=== PATIENT | male | born 1955 | race Caucasian/White ===

== ENCOUNTER 2022-08-30 01:02 | Inpatient (IN) | payer OTHER ==
[2022-08-30] VITALS (23 sets, daily range): BP systolic 81–105
[~2022-08-30] VITALS: Ht 172.7 cm; Wt 81.2 kg
--- NOTE | 2022-08-30 01:02 | NUR ---
PT BROUGHT IN BY [facility] [address] [facility], PLACED IN BED #1 AND TRIAGED. REPORT GIVEN TO TAVO
--- NOTE | 2022-08-30 01:05 | NUR ---
YAMILET Segura at bedside examining patient.
[2022-08-30] MEDS ORDERED: NOREPINEPHRINE 4 MG/4 ML VIAL IV ONE ×3 (01:14→09:05)
[2022-08-30] MEDS ORDERED: VANCOMYCIN HCL 1,000 MG in D5W 250 ML IV ONE (01:15)
[2022-08-30] MEDS ORDERED: NS 1000 ML IV.SOLN IV ONE (01:15)
[2022-08-30] MEDS ORDERED: NOREPINEPHRINE BITARTRATE 4 MG in NS 246 ML IV ONE (01:15)
[2022-08-30] MEDS ORDERED: PIPERACILLIN/TAZO 3.375 GM in D5W 50 ML IV ONE (01:15)
[2022-08-30 01:27] LABS: BASOPHILS % (AUTO) 0.2 % (0.0-2.0); EOSINOPHILS % (AUTO) 0.1 % (0.0-4.0); HEMATOCRIT 30.5 % (36-54); LYMPHOCYTES # (AUTO) 0.4 K/uL (1.0-5.5); LYMPHOCYTES % (AUTO) 2.9 % (20.5-51.5); MEAN CORPUSCULAR HEMOGLOBIN 29 pg (27-31); MEAN CORPUSCULAR HGB CONC 33 % (32-36); MEAN CORPUSCULAR VOLUME 90 fL (79.0-98.0); MONOCYTES # (AUTO) 0.4 K/uL (0.0-1.0); MONOCYTES % (AUTO) 2.9 % (1.7-9.3); NEUTROPHILS # (AUTO) 11.8 K/uL (1.8-7.7); NEUTROPHILS % (AUTO) 93.9 % (40.0-70.0); PLATELET COUNT (AUTO) 161 K/uL (130-430); RED BLOOD CELL COUNT(AUTO) 3.41 MIL/uL (4.2-6.2); RED CELL DISTRIBUTION WIDTH 17.4 % (9.0-15.0); WHITE BLOOD COUNT (AUTO) 12.6 K/uL (4.8-10.8)
--- NOTE | 2022-08-30 01:30 | NUR ---
PT IN RESPIRATORY DISTRESS, PER DR HERNANDEZ PT NEEDS TO BE INTUBATED. RT PRIMARY NURSE AND MD AT BEDSIDE.
--- NOTE | 2022-08-30 01:32 | NUR ---
# 16 FR Padilla catheter with use of sterile technique. Immediate return of 150 cc STRAW urine noted. Bedside drainage bag placed below level of bladder. Urine sample collected and sent to lab. Pt tolerated procedure WELL Patient unable to toilet self.
[2022-08-30] MEDS ORDERED: INSU100V42 (01:35)
[2022-08-30] MEDS ORDERED: BIKTARVY PO (01:35)
[2022-08-30] MEDS ORDERED: CLOP75TA32 PO (01:35)
[2022-08-30] MEDS ORDERED: MIDO5TAB4 PO (01:35)
[2022-08-30] MEDS ORDERED: RIVA1.5C30 PO (01:35)
[2022-08-30] MEDS ORDERED: PRO40 PO (01:35)
[2022-08-30] MEDS ORDERED: INSU100V53 SUBCUT (01:35)
[2022-08-30] MEDS ORDERED: SERT25TA PO (01:35)
[2022-08-30] MEDS ORDERED: BUDE6HFA INH (01:35)
[2022-08-30] MEDS ORDERED: MULT-591 PO (01:35)
[2022-08-30] MEDS ORDERED: DOCU-144 PO (01:35)
[2022-08-30] MEDS ORDERED: EMPA10TA PO (01:35)
[2022-08-30] MEDS ORDERED: ROSU40TA PO (01:35)
[2022-08-30] MEDS ORDERED: MONT-40 PO (01:35)
[2022-08-30] MEDS ORDERED: TAMS0.4C96 PO (01:35)
[2022-08-30] MEDS ORDERED: METF-518 PO (01:35)
[2022-08-30] MEDS ORDERED: RISP1TAB7 PO (01:35)
--- NOTE | 2022-08-30 01:40 | NUR ---
Medication reconciliation completed with information provided by [facility] . Any prior medication reconciliation on file was reviewed and corrected.
[2022-08-30 01:44] LABS: ANION GAP 19 (5-15); CALCIUM 9.3 mg/dL (8.4-11.0); CHLORIDE 101 mmol/L (98-107); CREATININE 3.29 mg/dL (0.55-1.30); GFR AFRICAN AMERICAN 24 mL/min (>90); GLUCOSE 183 mg/dL (70-99); UREA NITROGEN, BLOOD 60 mg/dL (8-21)
[2022-08-30] MEDS ORDERED: ROCURONIUM BROMIDE 10 MG/ML (ZEMURON) ONE (01:44)
[2022-08-30] MEDS ORDERED: ETOMIDATE 20 MG/ 10 ML VIAL (AMIDATE) ONE (01:44)
[2022-08-30] MEDS ORDERED: MIDAZOLAM IN NACL,ISO-OSMOT/PF 100 ML IV PRN ×2 (01:45→13:15)
[2022-08-30] MEDS ORDERED: MIDAZOLAM IN NACL,ISO-OSMOT/PF 100 ML IV ONE (01:51)
[2022-08-30 01:52] LABS: ALANINE AMINOTRANSFERASE 46 U/L (12-78); ALBUMIN 2.5 g/dL (3.4-4.8); ASPARTATE AMINOTRANSFERASE 67 U/L (10-37); TOTAL BILIRUBIN 0.7 mg/dL (0.0-1.0)
--- NOTE | 2022-08-30 01:59 | NUR ---
LE:0134 ETOMIDATE 20MG GIVEN 0135 ROCURONIUM 50 MG GIVEN 0136 PT WAS INTUBATED SUCCESFULLY 24 AT THE LIP/7.5 TUBE. 0139 NG TUBE WAS INSERTED TO RIGHT NARE, NO TRAUMA OR BLEEDING NOTED.
--- NOTE | 2022-08-30 02:01 | NUR ---
COVID AND MRSA SWABBED AND SENT TO LAB LABELED
[2022-08-30 02:03] LABS: BILIRUBIN,URINE NEGATIVE (NEGATIVE); BLOOD, URINE 2+ (NEGATIVE); CLARITY/URINE SL CLOUDY (CLEAR); COLOR,URINE YELLOW (YELLOW); GLUCOSE,URINE 3+ (NEGATIVE); KETONES,URINE NEGATIVE (NEGATIVE); LEUKOCYTE ESTERASE ,URINE NEGATIVE (NEGATIVE); NITRITE, URINE NEGATIVE (NEGATIVE); PROTEIN URINE 2+ (NEGATIVE); UROBILINOGEN,URINE 0.2 (0.2-1.0)
[2022-08-30] MEDS ORDERED: PIPERACILLIN/TAZOBACTAM 3.375 GM/VIAL (ZOSYN) IV ONE (02:03)
[2022-08-30] MEDS ORDERED: VANCOMYCIN HCL 1000 MG/VIAL IV ONE (02:03)
[2022-08-30 02:05] LABS: INR 0.9 (0.80-1.20); PROTHROMBIN TIME 9.8 SECS (9.5-12.5)
[2022-08-30] MEDS ORDERED: ASPIRIN 300 MG/SUPP.RECT SUPP RC ONE ×2 (02:30→04:55)
[2022-08-30] MEDS ORDERED: *LOVENOX 1MG/KG Q24H/PHARMACY XX ONE (02:30)
[2022-08-30 02:34] LABS: BACTERIA,URINE RARE /HPF (None Seen); WBC,URINE 0-3 /HPF (0-3)
--- NOTE | 2022-08-30 02:35 | NUR ---
MD JOHNSON PAGEJennifer FOR ADMISSION CALL WAS TRANSFERED TO MD HERNANDEZ
[2022-08-30] MEDS: D5NS 1,000 ML IV SCH ×3 (02:45→22:15)
--- NOTE | 2022-08-30 03:13 | NUR ---
LOVENOX WAS GIVEN PER DRS ORDERS. 1MG/KG=80 MG
[2022-08-30] MEDS ORDERED: ENOXAPARIN SODIUM 100 MG/ML SYRINGE ONE (03:14)
--- NOTE | 2022-08-30 03:36 | NUR ---
PT SWAB FOR INFLUENZA A&B, SWAB GIVEN TO [place].
--- NOTE | 2022-08-30 04:22 | NUR ---
Jn blanco in ED - 08/30/22 at 0424 by ANGIE MD ELIZABETH GOLDSTEIN FOR ADMITTING AND PATCHED TO MD HERNANDEZ
[2022-08-30] MEDS ORDERED: HYDROCORTISONE SOD SUCC 100 MG/2 ML VIAL IVP ONE (05:00)
[2022-08-30] MEDS ORDERED: HYDROCORTISONE SOD SUCC 100 MG/2 ML VIAL ONE (05:14)
[2022-08-30] MEDS: NOREPINEPHRINE BITARTRATE 4 MG in D5W 246 ML IV PRN ×2 (05:36→09:12)
[2022-08-30] MEDS ORDERED: METF-381 PO (06:26)
--- NOTE | 2022-08-30 07:21 | NUR ---
ASSUMED PATIENT CARE VENTED, ON CARDIAC MNONITOR, SEDATED WITH VERSED DRIP, ON LEVOPHEDE, NO ACUTE DISTRESS NOTED, WILL CONTINUE TO MONITOR.
--- NOTE | 2022-08-30 07:45 | NUR ---
ADMITTING PHYSICIAN DR JOHNSON AT BEDSIDE.
[2022-08-30] MEDS ORDERED: ONDANSETRON HCL 4 MG/2 ML VIAL IVP PRN (08:00)
[2022-08-30] MEDS ORDERED: NALOXONE HCL 0.4 MG/ML AMP (NARCAN) IVP PRN ×2 (08:00)
[2022-08-30] MEDS ORDERED: POTASSIUM CHLORIDE 20 MEQ TAB.PRT.SR PO PRN (08:00)
[2022-08-30] MEDS ORDERED: ACETAMINOPHEN 325 MG TABLET PO PRN ×2 (08:00→08:15)
[2022-08-30] MEDS ORDERED: MUPIROCIN 2% TOPICAL OINTMENT 22 GM NS PRN (08:00)
[2022-08-30] MEDS ORDERED: MAGNESIUM SULFATE 50 ML IV PRN (08:00)
[2022-08-30] MEDS ORDERED: LORazepam 2 MG/ML VIAL IVP PRN (08:00)
[2022-08-30] MEDS ORDERED: DEXTROSE 50% JECT 50 ML DISP.SYRIN IVP PRN (08:00)
[2022-08-30] MEDS ORDERED: MORPHINE 2 MG/ML INJ. SYRINGE IVP PRN ×2 (08:00)
[2022-08-30] MEDS ORDERED: ZOLPIDEM TARTRATE 5 MG TABLET PO PRN (08:00)
[2022-08-30] MEDS ORDERED: DOCUSATE SODIUM 100 MG CAPSULE PO PRN (08:00)
[2022-08-30] MEDS ORDERED: *HEPARIN PER PHARMACY XX ONE (08:00)
--- NOTE | 2022-08-30 08:21 | NUR ---
Admit bed requested Patient will be admitted to care of . Admitted to ICU unit. Diagnosis ACUTE RESPIRATORY FAILURE Inpatient (Yes or No) Y Observation (Yes or No) N Orientation concerns or request close to nursing station (Yes or No)Y Covid Status N On vent or bipap Y Isolation requirements N Needs a sitter N From Home (Yes or if No enter name of facility) N Requires Dialysis (Yes or No) N Med Rec Completed (Yes of No)Y
[2022-08-30] MEDS ORDERED: INSULIN Lispro 100 UNITS/ML, 3 ML VIAL (humaLOG) ONE ×2 (08:49→09:01)
[2022-08-30] MEDS: HEPARIN SODIUM,PORCINE 5,000 UNITS/ML VIAL SUBCUT SCH ×2 (08:52→21:12)
[2022-08-30] MEDS: SERTRALINE HCL 50 MG TABLET PO SCH (09:00)
[2022-08-30] MEDS ORDERED: HEPARIN SODIUM,PORCINE 5,000 UNITS/ML VIAL SUBCUT SCH (09:00)
[2022-08-30] MEDS ORDERED: RIVASTIGMINE TARTRATE 1.5 MG CAPSULE (EXELON) PO SCH (09:00)
[2022-08-30] MEDS ORDERED: BIKTARVY PO SCH (09:00)
--- NOTE | 2022-08-30 09:00 | NUR ---
DR HOU CARDIOLOGY CONSULT AT BEDSIDE.
--- NOTE | 2022-08-30 10:15 | NUR ---
ECHO AT BEDSIDE IN PROGRESS.
--- NOTE | 2022-08-30 12:13 | NUR ---
REPORT GIVEN TO BECKI BELLO
--- NOTE | 2022-08-30 12:25 | NUR ---
TRANSFERRED PATIENT TO 126 B FROM ER 1 VIA VENT. NO RESPIRATORY DISTRESS NOTED.
--- NOTE | 2022-08-30 12:31 | NUR ---
Patient will be admitted to care of [facility]. Admitted to ICU unit. Will go to room 126 B. Belongings list completed. Complete and up to date summary report printed. SBAR report to be given at bedside with opportunity for questions.
--- NOTE | 2022-08-30 12:40 | NUR ---
CONFIRMED PATIENT VISIBLE ON TELEMONITOR ON TELE FLOOR
[2022-08-30] MEDS ORDERED: NOREPINEPHRINE BITARTRATE 8 MG in NS 242 ML IV PRN ×2 (13:00→13:15)
[2022-08-30] MEDS ORDERED: MONTELUKAST 10 MG TABLET PO SCH (18:00)
[2022-08-30] MEDS ORDERED: ROSUVASTATIN CALCIUM 5 MG/TAB (CRESTOR) PO SCH (21:00)
[2022-08-30] MEDS ORDERED: ATORVASTATIN 20 MG TABLET PO SCH (21:00)
[2022-08-30] MEDS: risperiDONE 1 MG TABLET (RisperDAL) PO SCH (21:10)
[2022-08-30] MEDS: TAMSULOSIN HCL 0.4 MG CAP PO SCH (21:10)
[2022-08-30] MEDS: INSULIN LISPRO SLIDING SCALE 100 UNITS/ML, 3 ML VIAL (humaLOG) SUBCUT PRN (21:26)
[2022-08-30] MEDS: PIPERACILLIN/TAZO 2.25G/DEX-IS 50 ML IV SCH (23:56)
[2022-08-31] VITALS (28 sets, daily range): BP systolic 82–129
[2022-08-31] MEDS ORDERED: PIPERACILLIN/TAZOBACTAM 2.25 GM VIAL IV ONE (00:12)
[2022-08-31] MEDS: NOREPINEPHRINE BITARTRATE 8 MG in NS 242 ML IV PRN ×3 (01:31→20:27)
[2022-08-31] MEDS: MIDAZOLAM IN NACL,ISO-OSMOT/PF 100 ML IV PRN (05:02)
[2022-08-31] MEDS: PIPERACILLIN/TAZO 2.25G/DEX-IS 50 ML IV SCH ×3 (05:17→19:09)
[2022-08-31] MEDS: INSULIN LISPRO SLIDING SCALE 100 UNITS/ML, 3 ML VIAL (humaLOG) SUBCUT PRN ×3 (06:16→19:20)
[2022-08-31 06:47] LABS: EOSINOPHILS % (AUTO) 0.1 % (0.0-4.0); HEMATOCRIT 27.6 % (36-54); HEMOGLOBIN 9.4 g/dL (14.0-18.0); LYMPHOCYTES # (AUTO) 0.3 K/uL (1.0-5.5); LYMPHOCYTES % (AUTO) 2.8 % (20.5-51.5); MEAN CORPUSCULAR HEMOGLOBIN 30 pg (27-31); MEAN CORPUSCULAR HGB CONC 34 % (32-36); MEAN CORPUSCULAR VOLUME 88 fL (79.0-98.0); MONOCYTES # (AUTO) 0.4 K/uL (0.0-1.0); MONOCYTES % (AUTO) 3.5 % (1.7-9.3); NEUTROPHILS # (AUTO) 11.1 K/uL (1.8-7.7); NEUTROPHILS % (AUTO) 93.6 % (40.0-70.0); PLATELET COUNT (AUTO) 141 K/uL (130-430); RED BLOOD CELL COUNT(AUTO) 3.13 MIL/uL (4.2-6.2); WHITE BLOOD COUNT (AUTO) 11.8 K/uL (4.8-10.8)
[2022-08-31 07:01] LABS: CREATININE 4.37 mg/dL (0.55-1.30)
--- NOTE | 2022-08-31 08:25 | NUR ---
RT NOTES Assisted in transporting pt from 127B to ICU 5, pt was bagged with 100% O2 via BVM device to ETT, back on the vent once in the room. A/w remains secure/patent. Vent to red outlet, alarms remains set and audible at nurse's station. BVM device at bedside.
--- NOTE | 2022-08-31 08:38 | NUR ---
Reported to Dr. Mcfarland HR: 115-130 bpm.
--- NOTE | 2022-08-31 08:40 | NUR ---
Patient transferred to ICU 5 from [facility]. RT at bedside for assistance.
[2022-08-31] MEDS: SERTRALINE HCL 50 MG TABLET PO SCH (09:00)
[2022-08-31] MEDS: risperiDONE 1 MG TABLET (RisperDAL) PO SCH (09:00)
[2022-08-31] MEDS: PATIENT'S OWN TABLET PO SCH (09:00)
[2022-08-31] MEDS: D5NS 1,000 ML IV SCH ×2 (10:56→19:12)
[2022-08-31] MEDS: TAMSULOSIN HCL 0.4 MG CAP PO SCH ×2 (11:09→19:38)
[2022-08-31] MEDS ORDERED: ALBUMIN HUMAN 25% 200 ML IV ONE (11:15)
[2022-08-31] MEDS ORDERED: ALBUMIN HUMAN 25% 50 ML IV ONE (11:17)
[2022-08-31] MEDS ORDERED: NOREPINEPHRINE 4 MG/4 ML VIAL IV ONE ×2 (11:37→14:04)
[2022-08-31] MEDS: SODIUM BICARBONATE 8.4% JECT 100 MEQ in D5W 1,000 ML IVP SCH (12:14)
[2022-08-31] MEDS: HYDROCORTISONE 10 MG TABLET (CORTEF) PO SCH ×2 (12:15→21:03)
[2022-08-31] MEDS: HEPARIN SODIUM,PORCINE 5,000 UNITS/ML VIAL SUBCUT SCH ×2 (12:38→20:26)
--- NOTE | 2022-08-31 12:57 | NUR ---
Patient's family's contacts: Toma Waggoner (older sister) and Caro
--- NOTE | 2022-08-31 14:00 | NUR ---
Family arrived to room and had multiple questions regarding patient. Patient's sister and niece asked very specific questions regarding patient kidney function and if he had pressure sore. Explained that Dr. Blancas notified regarding family's questions and concerns. Patient's family appeared to grow increasingly frustrated. Patient's niece said, "I work for [employer] for 14 years and I have never experienced this lack of customer service at a hospital!" Explained that Dr. Blancas notified and was aware that family wanted to talk to him about patient. JERROD Retana made aware and Case RepairerTosin Lee present. Patient turned and cleaned as appropriate. Picture taken of patient's skin.
[2022-08-31] MEDS ORDERED: SODIUM BICARBONATE 8.4% JECT 50 MEQ/50 ML SYRINGE IVP ONE (14:45)
--- NOTE | 2022-08-31 15:18 | NUR ---
Spoke with Dr. Blancas regarding patient's wanting to speak with regarding patient's situation.
[2022-08-31] MEDS: VASOPRESSIN 40 UNITS in NS 38 ML IV PRN (15:47)
[2022-08-31 17:14] LABS: PROTHROMBIN TIME 10.6 SECS (9.5-12.5)
[2022-08-31 17:56] LABS: BILIRUBIN,URINE NEGATIVE (NEGATIVE); BLOOD, URINE 3+ (NEGATIVE); CLARITY/URINE TURBID (CLEAR); COLOR,URINE YELLOW (YELLOW); GLUCOSE,URINE 2+ (NEGATIVE); KETONES,URINE NEGATIVE (NEGATIVE); LEUKOCYTE ESTERASE ,URINE NEGATIVE (NEGATIVE); NITRITE, URINE NEGATIVE (NEGATIVE); PH,URINE 5.5 (5.0-8.0); PROTEIN URINE 2+ (NEGATIVE)
[2022-08-31 18:52] LABS: BACTERIA,URINE MANY /HPF (None Seen); COARSE GRANULAR CASTS,URINE 0-10 /LPF (None Seen); MUCUS,URINE None Seen /LPF (None Seen); URINE AMORPHOUS URATE 3+ /HPF (None Seen); YEAST,URINE Many /HPF (None Seen)
--- NOTE | 2022-08-31 19:30 | NUR ---
Report given to compliance counsel RN for continuity of care. Patient stable.
--- NOTE | 2022-08-31 19:30 | NUR ---
Pt report received. Pt sedated, mechanically ventilated, A/C, 18, 500, 45%, 5. NGT Left nare, clamp. Approx 30 mL black watery stomach contents aspirated. GRACIELA Midline with Levophed drip at 1 mcg/kg/min, Vasopressin drip at 0.04 Units/min, Bicarb drip at 100 mL/hr, and D5NS at 100 mL/hr. F/C secure with scant amount of yellow urine to catheter tubing. VSS, NAD.
--- NOTE | 2022-08-31 21:00 | NUR ---
FiO2 decreased to 35% per RT.
--- NOTE | 2022-08-31 23:05 | NUR ---
FiO2 decreased to 30% per RT.
[2022-09-01] VITALS (30 sets, daily range): BP systolic 86–129
[2022-09-01] MEDS: SODIUM BICARBONATE 8.4% JECT 100 MEQ in D5W 1,000 ML IVP SCH ×3 (00:24→23:22)
[2022-09-01] MEDS: PIPERACILLIN/TAZO 2.25G/DEX-IS 50 ML IV SCH ×5 (00:24→23:24)
--- NOTE | 2022-09-01 00:30 | NUR ---
SPO2 decreased to 90%. RT made aware and FiO2 increased to 35%.
[2022-09-01] MEDS: NOREPINEPHRINE BITARTRATE 16 MG in D5W 234 ML IV PRN ×3 (05:06→05:18)
[2022-09-01] MEDS: VASOPRESSIN 40 UNITS in NS 38 ML IV PRN (05:15)
[2022-09-01] MEDS: D5NS 1,000 ML IV SCH (05:26)
--- NOTE | 2022-09-01 06:15 | NUR ---
fsbs 448 mg/dL. Humalog 14 Units given SQ. Paged Dr. Garcia regarding Total IV intake = 3521 with only 10 mL U/O.
[2022-09-01] MEDS: INSULIN LISPRO SLIDING SCALE 100 UNITS/ML, 3 ML VIAL (humaLOG) SUBCUT PRN ×4 (06:25→21:46)
[2022-09-01 06:36] LABS: CREATININE 5.38 mg/dL (0.55-1.30)
[2022-09-01 06:37] LABS: BASOPHILS % (AUTO) 0.1 % (0.0-2.0); EOSINOPHILS % (AUTO) 0.1 % (0.0-4.0); HEMOGLOBIN 9.3 g/dL (14.0-18.0); LYMPHOCYTES # (AUTO) 0.4 K/uL (1.0-5.5); MEAN CORPUSCULAR HEMOGLOBIN 30 pg (27-31); MEAN CORPUSCULAR HGB CONC 33 % (32-36); MEAN CORPUSCULAR VOLUME 91 fL (79.0-98.0); MONOCYTES # (AUTO) 0.6 K/uL (0.0-1.0); MONOCYTES % (AUTO) 5.2 % (1.7-9.3); NEUTROPHILS # (AUTO) 10.7 K/uL (1.8-7.7); NEUTROPHILS % (AUTO) 91.6 % (40.0-70.0); PLATELET COUNT (AUTO) 153 K/uL (130-430); RED BLOOD CELL COUNT(AUTO) 3.07 MIL/uL (4.2-6.2); RED CELL DISTRIBUTION WIDTH 18.9 % (9.0-15.0); WHITE BLOOD COUNT (AUTO) 11.7 K/uL (4.8-10.8)
--- NOTE | 2022-09-01 07:30 | NUR ---
Pt report given to BECKI Pittman. Repeat fsbs 439 mg/dL, BECKI Pittman made aware.
[2022-09-01] MEDS: HYDROCORTISONE 10 MG TABLET (CORTEF) PO SCH ×3 (07:39→22:00)
[2022-09-01 08:30] LABS: CALCIUM 6.9 mg/dL (8.4-11.0)
--- NOTE | 2022-09-01 08:34 | NUR ---
HIGH ALERT NOTE: DR JOHNSON IN THE UNIT AND AWARE OF ELEVATED BLOOD SUGAR FINGER STICK 439, AND 454 ON GLUCOSE DRAW, ORDERED RECEIVED, 10 UNITS REGULAR INSULIN SQ.
[2022-09-01] MEDS ORDERED: INSULIN REGULAR, HUMAN 100 UNITS/ML, 3 ML VIAL SUBCUT ONE (08:45)
[2022-09-01] MEDS: PATIENT'S OWN TABLET PO SCH (08:59)
[2022-09-01] MEDS: HEPARIN SODIUM,PORCINE 5,000 UNITS/ML VIAL SUBCUT SCH ×2 (09:01→21:38)
[2022-09-01] MEDS ORDERED: PANTOPRAZOLE SODIUM 40 MG/VIAL (PROTONIX) IVP ONE (09:45)
--- NOTE | 2022-09-01 11:20 | NUR ---
BLOOD SUGAR 394 MG/DL, HUMALOG INSULIN GIVEN PER SLIDING SCALE GIVEN.
[2022-09-01] MEDS: NOREPINEPHRINE BITARTRATE IV PRN ×2 (12:23→19:49)
[2022-09-01] MEDS: D5W IV PRN ×2 (12:23→19:49)
[2022-09-01] MEDS ORDERED: SODIUM POLYSTYRENE SULFONATE 15 GM/60 ML UDBTL PO ONE (12:30)
--- NOTE | 2022-09-01 16:02 | NUR ---
Dietitian Recommendations * If/when medically appropriate, consider Vital AF 1.2 at 55 ml/hr (goal rate), Free Water Flush: per physician d/t ARF/CKD/CHF via NGT Provides: 1584 kcal/day, 99 gm protein/day, and 1071 ml free water/day Meets: 82% of estimated caloric needs and 97% of upper end of estimated protein needs LP, MS, RD Please refer to Nutrition Assessment for details. Addendum: 09/01/22 at [address] Amended: Links added.
[2022-09-01] MEDS: MIDAZOLAM IN NACL,ISO-OSMOT/PF 100 ML IV PRN (16:42)
--- NOTE | 2022-09-01 17:51 | NUR ---
BLOOD SUGAR 386 MG/DL, HUMALOG INSULIN SQ GIVEN PER SLIDING SCALE. PT REMAINS ON IVF [id number] WITH SODIUM BICARB AT 100 ML PER HR.
[2022-09-02] VITALS (17 sets, daily range): BP systolic 84–118
[2022-09-02] MEDS: NOREPINEPHRINE BITARTRATE IV PRN (02:31)
[2022-09-02] MEDS: D5W IV PRN (02:31)
[2022-09-02] MEDS: PIPERACILLIN/TAZO 2.25G/DEX-IS 50 ML IV SCH ×2 (05:22→11:53)
[2022-09-02] MEDS: HYDROCORTISONE 10 MG TABLET (CORTEF) PO SCH (06:18)
[2022-09-02] MEDS: INSULIN LISPRO SLIDING SCALE 100 UNITS/ML, 3 ML VIAL (humaLOG) SUBCUT PRN (06:51)
[2022-09-02 07:39] LABS: BASOPHILS % (AUTO) 0.1 % (0.0-2.0); EOSINOPHILS % (AUTO) 0.1 % (0.0-4.0); HEMATOCRIT 27.2 % (36-54); HEMOGLOBIN 8.9 g/dL (14.0-18.0); LYMPHOCYTES # (AUTO) 0.4 K/uL (1.0-5.5); LYMPHOCYTES % (AUTO) 3.8 % (20.5-51.5); MEAN CORPUSCULAR HEMOGLOBIN 30 pg (27-31); MEAN CORPUSCULAR HGB CONC 33 % (32-36); MEAN CORPUSCULAR VOLUME 91 fL (79.0-98.0); MONOCYTES # (AUTO) 0.9 K/uL (0.0-1.0); MONOCYTES % (AUTO) 7.4 % (1.7-9.3); NEUTROPHILS # (AUTO) 10.4 K/uL (1.8-7.7); PLATELET COUNT (AUTO) 131 K/uL (130-430); RED BLOOD CELL COUNT(AUTO) 2.99 MIL/uL (4.2-6.2); RED CELL DISTRIBUTION WIDTH 18.2 % (9.0-15.0); WHITE BLOOD COUNT (AUTO) 11.8 K/uL (4.8-10.8)
[2022-09-02 08:44] LABS: ALBUMIN 1.6 g/dL (3.4-4.8); CREATININE 5.85 mg/dL (0.55-1.30); TOTAL BILIRUBIN 1.1 mg/dL (0.0-1.0)
[2022-09-02] MEDS: HEPARIN SODIUM,PORCINE 5,000 UNITS/ML VIAL SUBCUT SCH (09:00)
[2022-09-02] MEDS: PATIENT'S OWN TABLET PO SCH (09:00)
[2022-09-02] MEDS ORDERED: PANTOPRAZOLE SODIUM 40 MG/VIAL (PROTONIX) IVP SCH (09:00)
[2022-09-02 09:20] LABS: CALCIUM 6.6 mg/dL (8.4-11.0)
[2022-09-02] MEDS: SODIUM BICARBONATE 8.4% JECT 100 MEQ in D5W 1,000 ML IVP SCH (11:06)
--- NOTE | 2022-09-02 12:25 | NUR ---
FAMILY PT'S SISTER NIGEL AT BEDSIDE. SHE WOULD BE EXPECTING MORE VISITORS TODAY AND WHEN EVERY ONE HAS COME SHE WILL BE NOTIFYING THE STAFF ON TERMINATING THE TREATMENT.
[2022-09-02] MEDS ORDERED: NALOXONE HCL 0.4 MG/ML AMP (NARCAN) IVP PRN (13:15)
[2022-09-02] MEDS ORDERED: MORPHINE SULFATE IN 0.9 % NACL 100 ML IV PRN (13:15)
--- NOTE | 2022-09-02 13:15 | NUR ---
HIGH ALERT NOTE: Called Dr.J. Blancas back at , identified within the medical roster to verify physician authenticity. Re: Morphine drip to keep patient comfortable. Code Status: DNR/Comfort Measures
--- NOTE | 2022-09-02 13:45 | NUR ---
IV DRIPS FAMILY EDUCATED ON MORPHINE DRIP. PT WILL BE TAKEN OFF THE VENTILATOR. FAMILY UNDERSTANDS AND WOULD LIKE A FAMILY MEMBER STAY WHILE THE ET TUBE WILL BE TAKEN OFF.
[2022-09-02 14:31] LABS: NEUTROPHILS % (AUTO) 88.6 % (40.0-70.0)
--- NOTE | 2022-09-02 14:31 | NUR ---
SHIP UNLOADER ACSW Preeti met with patient's family members to offer support following decion to remove patient from ventilator. In recognition of Spiritual/Islam/Cultural practices, ACSW informed family [facility] supports prayer or similar at bedside, family declined as shared they prayed as a family at bedside. Sister Toma and additional family declined further Social Service support at this time Hospital Medicine Director will continue to be available as needed
--- NOTE | 2022-09-02 15:28 | NUR ---
Kelton UGARTEACY CALLED UP THE OFFICE, SPOKE TO ELOY, ALL QUESTIONS ON MEDICAL HISTORY ANSWERED, REFERRAL NUMBER [id number], WILL CALL BACK FOR THE TIME OF .
--- NOTE | 2022-09-02 16:01 | NUR ---
RT NOTES Per compassionate extubation order, pt was extubated, placed on 2L Nc. Apnea was noted almost immediately, RN came to get family in the waiting room.
--- NOTE | 2022-09-02 17:33 | NUR ---
PRONOUNCEMENT OF DR BUTLER AT BEDSIDE, FLAT LINE ON CARDIAC RHYTHM SEEN, PUPILS DILATED AND FIXED, NO BLOOD PRESSURE READING, PULSES UNDETECTABLE.
--- NOTE | 2022-09-02 17:36 | NUR ---
VASCULAR NURSE'S OFFICE SPOKE TO KEYA, THE IS NOT A VASCULAR NURSE'S CASE.
--- NOTE | 2022-09-02 17:45 | NUR ---
LODE MINER'S OFFICE CALLED AND SPOKE TO EULA DOS SANTOSMAURO, IS NOT ELIGIBLE FOR DONATION, REFERRAL NUMBER [id number]. Addendum: 09/02/22 at 1758 by Toya Mclaughlin RN [phone] [facility], NOT LODE MINER'S OFFICE
--- NOTE | 2022-09-02 20:10 | NUR ---
Post mortem care provided. Patient was placed in body bag and ID tags were also placed as suggested by instructions. waiting for mortuary to brain picker the body.
== END 2022-09-02 19:00 | DRG 871 ==
LOC: SED 01:02 → SIC 02:45 → SMU 08:50 → SIC 12:13
PROVIDERS: ADMIT General Practice; ATTEND General Practice
PROC: 5A1945Z Respiratory Ventilation, 24-96 Consecutive Hours (ICD-10-PCS; principal; 2022-08-30)
PROC: 5A09357 Assistance with Respiratory Ventilation, Less than 24 Consecutive Hours, Continuous Positive Airway Pressure (ICD-10-PCS; 2022-08-30)
PROC: 0BH17EZ Insertion of Endotracheal Airway into Trachea, Via Natural or Artificial Opening (ICD-10-PCS; 2022-08-30)
PROC: 05HY33Z Insertion of Infusion Device into Upper Vein, Percutaneous Approach (ICD-10-PCS; 2022-08-30)
DX: A41.9 Sepsis, unspecified organism (principal); G93.41 Metabolic encephalopathy; I21.A1 Myocardial infarction type 2; R65.21 Severe sepsis with septic shock; J69.0 Pneumonitis due to inhalation of food and vomit; J96.00 Acute respiratory failure, unspecified whether with hypoxia or hypercapnia; N17.0 Acute kidney failure with tubular necrosis; J44.0 Chronic obstructive pulmonary disease with (acute) lower respiratory infection; E44.0 Moderate protein-calorie malnutrition; I42.0 Dilated cardiomyopathy; I13.0 Hypertensive heart and chronic kidney disease with heart failure and stage 1 through stage 4 chronic kidney disease, or unspecified chronic kidney disease; F20.0 Paranoid schizophrenia; Z66 Do not resuscitate; N40.0 Benign prostatic hyperplasia without lower urinary tract symptoms; D63.8 Anemia in other chronic diseases classified elsewhere; F03.90 Unspecified dementia, unspecified severity, without behavioral disturbance, psychotic disturbance, mood disturbance, and anxiety; Z20.822 Contact with and (suspected) exposure to COVID-19; I50.9 Heart failure, unspecified; N18.9 Chronic kidney disease, unspecified; E11.22 Type 2 diabetes mellitus with diabetic chronic kidney disease; Z95.0 Presence of cardiac pacemaker; Z87.891 Personal history of nicotine dependence; Z87.442 Personal history of urinary calculi; Z87.440 Personal history of urinary (tract) infections; Z86.73 Personal history of transient ischemic attack (TIA), and cerebral infarction without residual deficits; Z79.4 Long term (current) use of insulin; I25.2 Old myocardial infarction; Z79.899 Other long term (current) drug therapy; Z68.27 Body mass index [BMI] 27.0-27.9, adult; Z21 Asymptomatic human immunodeficiency virus [HIV] infection status
CPT/HCPCS: 36415; 36600; 71045; 76770; 80048; 80053; 81000; 82803-TC; 82962; 83036; 83605; 83735; 83880; 84302; 84484; 85025; 85610-TC; 85730-TC; 87040; 87070-TC; 87081; 87086; 87205-TC; 93005; 93306; 94002; 94003; 94660; 96365; 96367; 96375; 99285; C9113; J1644; J1650; J1720; J1815; J2270; J2543; J3370; J3490; J7042; J7050; J7060; P9046